=== PATIENT | male | born 1965 | race Caucasian/White ===

== ENCOUNTER 2017-09-10 06:12 | Day surgery (SDC) | payer MEDICAID ==
[2017-09-10] MEDS ORDERED: Bupivacaine-Epi 0.25%-1:200,000 PF Inj IJ ONE (07:18)
[2017-09-10] MEDS ORDERED: Midazolam 2 MG/2 ML VIAL ONE (07:28)
[2017-09-10] MEDS ORDERED: Propofol 10 mg/ml Inj (20 ML) ONE (07:28)
[2017-09-10] MEDS ORDERED: Lidocaine 1%/Epinephrine 1:100000 30 ml vial IJ ONE (07:30)
[2017-09-10] MEDS ORDERED: Vancomycin 1 gm/D5W 200 ml 1 GM/200 ML BAG IVPB ONE (07:35)
[2017-09-10] MEDS: Lidocaine/Epinephrine 1% 1:100000 10 ML IJ ONE ×2 (07:52→08:05)
[2017-09-10] MEDS: Bupivacaine HCl 0.25% PF (10 ml) Inj ONE ×5 (07:52→09:55)
[2017-09-10] MEDS ORDERED: HYDROmorphone 0.5 mg/0.5 ml ISec IVP PRN (09:30)
[2017-09-10] MEDS ORDERED: Oxycodone/Acetaminophen 5/325 mg Tab PO ONE (10:45)
--- NOTE | 2017-09-10 11:06 | PCM.SURG1 ---
Surgeon's Initial Post Op Note - Surgeon's Notes Surgeon: Dr. Matos Equal Opportunity Specialist: Merchant [id number], Mook SAINZ Type of Anesthesia: General Endo Pre-Operative Diagnosis: Left inguinal hernia Operative Findings: Direct bilateral inguinal hernia. for details see op note Post-Operative Diagnosis: left pantaloon, right direct henria Operation Performed: bilateral robotic hernia repair with mesh Specimen/Specimens Removed: none Estimated Blood Loss: EBL {In ML}: 15 Drains Used: No Drains Post-Op Condition: Good Date of Surgery/Procedure: 09/10/17 Time of Surgery/Procedure: 11:06
[2017-09-10 13:20] VITALS: O2SAT 100
[2017-09-10] MEDS ORDERED: Oxycodone/Acetaminophen 5/325 mg Tab PO PRN (13:26)
[2017-09-10] MEDS ORDERED: Oxycodone/Acetaminophen 5/325 mg Tab ONE (13:32)
[2017-09-10 15:31] VITALS: BP 100/70; PULSE 81; RESP 16; TEMP 98
--- NOTE | 2017-09-12 00:14 | OP ---
PROCEDURE DATE: 09/09/2017. PREOPERATIVE DIAGNOSIS: Left inguinal hernia, possible bilateral inguinal hernia. POSTOPERATIVE DIAGNOSES: 1. Left direct inguinal hernia. 2. Right direct inguinal hernia. PROCEDURES DONE: 1. Robotic left inguinal hernia repair with mesh. 2. Robotic right inguinal hernia repair with mesh. 3. Laparoscopic bilateral TAP block placement. SURGEON: Eriberto Matos MD. DOCTOR OF PHARMACY: JONATHAN Jay. SECOND DOCTOR OF PHARMACY: Jairo, PGY-1, resident. TYPE OF ANESTHESIA: General endotracheal tube anesthesia. ESTIMATED BLOOD LOSS: EBL is around 10 mL. DRAINS: None. PATHOLOGY: None. COMPLICATIONS: None. INTRAOPERATIVE FINDINGS: The patient had left direct inguinal hernia and the patient also had a right inguinal hernia. DESCRIPTION OF PROCEDURE: On intraoperative step, this 52-year-old male was diagnosed with left inguinal hernia and the patient also had pain on the right side, the patient was consented for robotic left inguinal hernia repair with a mesh possible bilateral, brought to the OR, placed supine on operating table. After induction of the anesthesia, the abdomen was prepped and draped in the usual sterile fashion. Oates catheter was placed and supraumbilical incision was made. After incising skin and subcutaneous tissue and the fascia, the peritoneal cavity was entered and another three 8-mm robotic port was placed and pneumo was created and robot was brought in. Camera arm as well as arm 1, arm 2 were docked and the patient was placed in a Trendelenburg position before docking the robot and after that the peritoneal incision was made from the left side to the right side and the dissection was carried down medially to the space of edges and the suprapubic region and laterally to the lateral abdominal wall, on the left side first and then the dissection was carried down to reduce the hernia back and content and the inferior dissection was done up to the peritoneal reflection. Now, the similar dissection was done on the right side and lateral dissection was done, medial dissection was done and the peritoneal sac was reduced. Inferior dissection was done up to the peritoneal reflection. Now, the right and left anatomical mesh was placed and after proper implantation of the mesh on the right side as well as the left side, the peritoneum was sutured with 2-0 Vicryl interrupted and then 3-0 Vicryl V-Loc PDS continuous suture. All the instrument was taken out. All the robotic arm was undocked and procedure was converted to a laparoscopy. Now, the laparoscopic TAP block was given, first on the right side as well as the left side. Right side 15:15 mL of Marcaine was injected, then the left side 15:15 mL of Marcaine was also injected. Total 40 mL of Marcaine with 20 mL of normal saline was injected for the TAP block and after that, all the ports were taken under vision. Pneumo was deflated and umbilical port site was closed in 2 layers, fascia with 0 Vicryl interrupted suture, skin with 4-0 Monocryl and dry sterile dressing was applied. The patient tolerated the procedure well. Count of the instrument and gauze was correct. There was no apparent complication. Eriberto Matos MD
== END 2017-09-10 15:46 | disposition home or self-care (01) ==
LOC: C.SDS 06:12
PROVIDERS: ATTEND Surgery Surgical Critical Care
DX: K40.20 Bilateral inguinal hernia, without obstruction or gangrene, not specified as recurrent (principal)
CPT/HCPCS: 49525; 64488; J0131; J1885; J2001; J2250; J2405; J2704; J3010; J3370